=== PATIENT | female | born 1945 | race Caucasian/White ===

== ENCOUNTER 2016-04-22 09:59 | Outpatient (CLI) | payer MEDICARE, OTHER | END 2016-04-22 10:00 | disposition home or self-care (01) | DX: S92.352A Displaced fracture of fifth metatarsal bone, left foot, initial encounter for closed fracture (principal) ==

== ENCOUNTER 2016-05-20 10:57 | Outpatient (CLI) | payer MEDICARE, OTHER | END 2016-05-20 10:58 | disposition home or self-care (01) | DX: S92.355D Nondisplaced fracture of fifth metatarsal bone, left foot, subsequent encounter for fracture with routine healing (principal) ==

== ENCOUNTER 2016-06-23 16:48 | Outpatient (CLI) | payer MEDICARE, OTHER | END 2016-06-23 16:49 | disposition home or self-care (01) | DX: S92.352D Displaced fracture of fifth metatarsal bone, left foot, subsequent encounter for fracture with routine healing (principal) ==

== ENCOUNTER 2016-07-24 10:23 | Outpatient (CLI) | payer MEDICARE, OTHER ==
--- NOTE | 2016-07-24 12:41 | XRAY Report ---
THREE-VIEW LEFT FOOT: 07/24/2016 CLINICAL INDICATION: Followup distal 5th metatarsal fracture. FINDINGS: AP, lateral, oblique views of the left foot demonstrate interval callus formation at the d istal 5th metatarsal fracture site. Osteoarthritic changes are stable, with hallux valgus. No new f racture is appreciated. IMPRESSION: CONTINUED HEALING OF THE DISTAL 5TH METATARSAL FRACTURE. STABLE OSTEOARTHRITIS AND ARORA UX VALGUS. JOB #: [id number] EXT JOB #:[id number]
== END 2016-07-24 10:24 | disposition home or self-care (01) ==
LOC: DI 10:23
PROVIDERS: ATTEND Podiatrist
DX: S92.352D Displaced fracture of fifth metatarsal bone, left foot, subsequent encounter for fracture with routine healing (principal); M19.072 Primary osteoarthritis, left ankle and foot; M20.12 Hallux valgus (acquired), left foot

== ENCOUNTER 2018-01-07 16:47 | Outpatient (CLI) | payer MEDICARE, OTHER | END 2018-01-07 16:48 | disposition home or self-care (01) | LOC: RT.S 16:47 | PROVIDERS: ATTEND Nurse Practitioner Family | DX: R07.89 Other chest pain (principal); Z86.79 Personal history of other diseases of the circulatory system | CPT/HCPCS: 93005 ==

== ENCOUNTER 2018-04-11 11:51 | Outpatient (CLI) | payer MEDICARE, OTHER ==
--- NOTE | 2018-04-12 10:33 | XRAY Report ---
Reason: COUGH Procedure Date: 04/11/2018 Accession Number: [id number] / [id number] Procedure: XR - Chest 2 View X-Ray CPT Code: 38334 FULL RESULT: EXAM: CHEST RADIOGRAPHY EXAM DATE: 04/11/2018 03:20 PM. CLINICAL HISTORY: Productive cough, shortness of breath, and fatigue x1 week COMPARISON: 06/22/2011 4:48 PM. TECHNIQUE: 2 views. FINDINGS: Lungs/Pleura: Normal volumes. No focal consolidation or evidence of edema. No pleural effusion or pneumothorax. Mediastinum: Normal cardiomediastinal contour. Other: Mild degenerative changes in the mid/lower thoracic spine. IMPRESSION: No acute cardiopulmonary abnormality. RADIA
== END 2018-04-11 11:52 | disposition home or self-care (01) ==
LOC: DI 11:51
PROVIDERS: ATTEND Nurse Practitioner Family
DX: R05 Cough (principal)
CPT/HCPCS: 71046

== ENCOUNTER 2019-03-25 12:25 | Outpatient (CLI) | payer MEDICARE, OTHER ==
--- NOTE | 2019-03-25 20:22 | XRAY Report ---
Reason: CHEST PAIN Procedure Date: 03/25/2019 Accession Number: [id number] / [id number] Procedure: XR - Chest 2 View X-Ray CPT Code: 84129 Final Report FULL RESULT: EXAM: CHEST RADIOGRAPHY EXAM DATE: 03/25/2019 12:40 PM. CLINICAL HISTORY: CHEST PAIN. COMPARISON: CHEST 2 VIEW 04/11/2018 3:14 PM. TECHNIQUE: 2 views. FINDINGS: Lungs/Pleura: No focal opacities evident. No pleural effusion. No pneumothorax. Normal volumes. Mediastinum: Heart and mediastinal contours are unremarkable. Other: None. IMPRESSION: Normal 2-view chest radiography. RADIA
== END 2019-03-25 12:26 | disposition home or self-care (01) ==
LOC: DI 12:25
PROVIDERS: ATTEND Registered Nurse
DX: R07.9 Chest pain, unspecified (principal)
CPT/HCPCS: 71046

== ENCOUNTER 2019-04-05 15:18 | Outpatient (CLI) | payer MEDICARE, OTHER ==
--- NOTE | 2019-04-06 08:17 | DEXA Report ---
Reason: POSTMENOPAUSAL Procedure Date: 04/05/2019 Accession Number: [id number] / [id number] Procedure: DEX - Dexa Spine and/or Hip CPT Code: Final Report FULL RESULT: EXAM: Dexa Spine and/or Hip DATE: 04/05/2019 3:59 PM CLINICAL HISTORY: POSTMENOPAUSAL TECHNIQUE: Dual energy x-ray absorptiometry (DXA) was performed on a code-laboration System. Regions measured are the AP Spine, femoral neck, and if needed forearm. COMPARISON: None. In accordance with the International Society for Clinical Densitometry (ISCD) guidelines, data from previous exams may be reanalyzed using current recommendations and techniques. This is done to allow a more accurate basis for comparison with the current study. FINDINGS: The data for the lumbar spine is as follows: BMD (g/cm/cm) T-SCORE Z-SCORE REGION L1 0.904 -1.9 -0.3 L2 0.904 -2.5 -0.9 L3 1.044 -1.3 0.3 L4 1.216 0.1 1.7 TOTAL L1-L3 0.955 -1.8 -0.2 NOTE: All evaluable vertebrae are used for classification The data for the hip is as follows: BMD (g/cm/cm) T-SCORE Z-SCORE REGION Neck 0.779 -1.9 -0.2 TOTAL 0.805 -1.6 -0.2 NOTE: The femoral neck or total proximal femur, whichever is lowest, is used for classification. IMPRESSION: THE WHO CLASSIFICATION BASED ON THE INTERNATIONAL REFERENCE STANDARD IS OSTEOPENIA. THE FRACTURE RISK IS INCREASED. RECOMMENDATION: Patients with diagnosis of osteoporosis or osteopenia should have regular bone mineral density assessment. For those eligible for Medicare, routine testing is allowed once every 2 years. Testing frequency can be increased for patients who have rapidly progressing disease or for those who are receiving medical therapy to restore bone mass. COMMENT: World Health Organization (WHO) definitions for osteoporosis and osteopenia: NORMAL BMD: T-score at -1.0 or higher, fracture risk is low OSTEOPENIA BMD: T-score between -1.0 and -2.5, fracture risk is increased. OSTEOPOROSIS BMD: T-score at -2.5 or lower, fracture risk is high. National Osteoporosis Foundation recommends: 1. Obtain adequate dietary calcium (at least 1200 mg per day) and vitamin D (400-800 international units per day). 2. Participate, as appropriate, in regular weightbearing and muscle-strengthening exercise. 3. Avoid tobacco use and reduce alcohol and caffeine intake. 4. For more detailed information see the website at www.NOF.org.
== END 2019-04-05 15:19 | disposition home or self-care (01) ==
LOC: DI 15:18
PROVIDERS: ATTEND Registered Nurse
DX: M85.89 Other specified disorders of bone density and structure, multiple sites (principal); Z78.0 Asymptomatic menopausal state
CPT/HCPCS: 77080

== ENCOUNTER 2019-04-05 15:19 | Outpatient (CLI) | payer MEDICARE, OTHER ==
--- NOTE | 2019-04-05 16:51 | Mammography Report ---
Reason: ROUTINE MAMMO Procedure Date: 04/05/2019 Accession Number: [id number] / [id number] Procedure: ELA - Screening Mammo w/[facility] CPT Code: Final Report FULL RESULT: EXAM: Screening Mammo w/[facility] DATE: 04/05/2019 4:05 PM CLINICAL HISTORY: Screening encounter. History of late childbearing. TECHNIQUE: (B) - Bilateral CC, laterally exaggerated CC, MLO views were obtained. COMPARISON: 10/25/2015 and 03/28/2014. PARENCHYMAL PATTERN: (D) - The breast(s) demonstrate(s) heterogeneously dense fibroglandular parenchyma. FINDINGS: There are no suspicious masses, calcifications, or areas of distortion. IMPRESSION: Negative examination. BI-RADS category 1. RECOMMENDATION: (ANNUAL) - Recommend routine annual screening mammography. BI-RADS CATEGORY: (1) - Negative. STANDARD QUALIFYING STATEMENTS: 1. This examination was not reviewed with the aid of Computer-Aided Detection (CAD). 2. A negative or benign imaging report should not preclude biopsy if clinically suspicious findings are present. 3. Dense breasts may obscure an underlying neoplasm. 4. This examination was reviewed with the aid of 3D breast imaging (tomosynthesis).
== END 2019-04-05 15:20 | disposition home or self-care (01) ==
LOC: DI 15:19
PROVIDERS: ATTEND Registered Nurse
DX: Z12.31 Encounter for screening mammogram for malignant neoplasm of breast (principal)
CPT/HCPCS: 77063; 77067

== ENCOUNTER 2020-04-30 08:48 | Outpatient (CLI) | payer MEDICARE, OTHER ==
--- NOTE | 2020-05-01 15:07 | Mammography Report ---
BILATERAL DIGITAL SCREENING MAMMOGRAM 3D/2D WITH EXAGGERATED CC: 04/30/2020 CLINICAL: Routine screening. Comparison is made to exams dated: 04/05/2019 mammogram and 10/25/2015 mammogram - [facility]. The tissue of both breasts is heterogeneously dense. This may lower the sensitivity of nunu mography. No significant masses, calcifications, or other findings are seen in either breast. There has been no significant interval change. IMPRESSION: NEGATIVE There is no mammographic evidence of malignancy. A 1 year screening mammogram is recommended. This exam was interpreted at Station ID: [id number]. NOTE: For mammograms, a report in lay terms will be sent to the patient. Approximately 15% of breast malignancies will not be visualized mammographically. In the management of a palpable breast mass, a negative mammogram must not discourage biopsy of a clinically suspicious lesion. Electronically Signed By: Massimo Hardin M.D. ar/penrad:04/30/2020 13:30:16 ACR BI-RADS Category 1: Negative 3341F PARENCHYMAL PATTERN: (D) - The breast(s) demonstrate(s) heterogeneously dense fibroglandular cristofer thomas. BI-RADS CATEGORY: (1) - 1 RECOMMENDATION: (ANNUAL) - Recommend routine annual screening mammography. [id number] 1 year screening LATERALITY: (B)
== END 2020-04-30 08:49 | disposition home or self-care (01) ==
LOC: DI.S 08:48
DX: Z12.31 Encounter for screening mammogram for malignant neoplasm of breast (principal)

== ENCOUNTER 2020-10-04 22:29 | Emergency (ER) | payer MEDICARE, OTHER ==
[2020-10-04] MEDS ORDERED: KETOROLAC 30 MG/ML VIAL IM STA (23:14)
[2020-10-04] MEDS ORDERED: cloNIDine 0.1 MG TABLET PO STA (23:15)
--- NOTE | 2020-10-04 23:17 | ED Physician Documentation ---
History of Present Illness - Stated complaint Stated Complaint: HIGH BP - Chief complaint Chief Complaint: Cardiac - History obtained from History obtained from: Patient, Family () - Additonal information Additional information: 74-year-old woman with history of intermittent A. fib on propafenone, not on AC, also with trigeminal neuralgia and recurrent sinus tract infection, HTN, p/w elevated BP at home and stress related to this. She also endorses intermittent "fuzziness", mild dizziness, bitemporal COVARRUBIAS. denies CP, SOA, n/v, FND. Review of Systems Ten Systems: 10 systems reviewed and negative Constitutional: denies: Fever, Chills, Myalgias Cardiac: denies: Chest pain / pressure Respiratory: denies: Dyspnea Neurologic: reports: Headache, Other (dizziness and fuzziness) PD PAST MEDICAL HISTORY - Past Medical History Past Medical History: Yes Cardiovascular: Hypertension, Atrial fibrillation Respiratory: None Neuro: None Endocrine/Autoimmune: None GI: Ulcers DIPLOMATIC OFFICER: None : None HEENT: Other Derm: None Other Past Medical History: TMJ, Trigeminal neuralgia - Past Surgical History Past Surgical History: Yes HEENT: Other - Present Medications Home Medications: Ambulatory Orders Medication Instructions Recorded Confirmed Gabapentin [Neurontin] 800 mg PO DAILY 10/04/20 10/04/20 Losartan [Cozaar] 25 mg PO DAILY 10/04/20 10/04/20 - Allergies Allergies/Adverse Reactions: Allergies Allergy/AdvReac Type Severity Reaction Status Date / Time No Known Drug Allergies Allergy Verified 10/04/20 22:51 - Social History Does the pt smoke?: No Smoking Status: Never smoker PD ED PE NORMAL - Vitals Vital signs reviewed: Yes - General General: Alert and oriented X 3, No acute distress, Well developed/nourished - HEENT HEENT: Atraumatic, PERRL, EOMI - Neck Neck: Supple, no meningeal sign - Cardiac Cardiac: RRR - Respiratory Respiratory: No respiratory distress, Clear bilaterally - Abdomen Abdomen: Non tender, Non distended - Derm Derm: Normal color - Extremities Extremities: No deformity - Neuro Neuro: Alert and oriented X 3, type bar and segment assembler 2-12 intact, No motor deficit, No sensory deficit, Normal speech, Other (normal cerebellar testing) - Psych Psych: Other (mood is "stressed". anxious affect) Results - Vitals Vitals: Vital Signs - 24 hr 10/04/20 10/04/20 10/04/20 22:30 22:48 23:58 Temperature 36.6 C Heart Rate 53 L 59 L 54 L Respiratory 18 16 Rate Blood Pressure 216/76 H 231/89 H 169/71 H O2 Saturation 99 100 10/05/20 00:27 Temperature 36.6 C Heart Rate 50 L Respiratory 18 Rate Blood Pressure 180/70 H O2 Saturation 97 Oxygen O2 Source Room air - EKG (time done) 2320 Rate: Rate (enter#) (50) Rhythm: Sinus bradycardia Sherman: Normal Intervals: Normal VA QRS: Normal Ischemia: Normal ST segments Compare to prior EKG: Unchanged from prior EKG Computer interpretation: Agree with computer - Labs Labs: Laboratory Tests 10/04/20 10/04/20 10/04/20 23:10 23:10 23:10 WBC 4.4 L RBC 3.97 L Hgb 12.5 Hct 37.7 MCV 95.0 MCH 31.5 H MCHC 33.2 RDW 11.5 L Plt Count 325 MPV 9.3 Neut # (Auto) 2.1 Lymph # (Auto) 1.5 Marshall # (Auto) 0.5 Eos # (Auto) 0.2 Baso # (Auto) 0.0 Absolute Nucleated RBC 0.00 Nucleated RBC % 0.0 Sodium 137 Potassium 3.7 Chloride 102 Carbon Dioxide 28 Anion Gap 7.0 BUN 22 H Creatinine 0.6 Estimated GFR (MDRD) 98 Glucose 104 H Calcium 9.3 Total Bilirubin 0.7 AST 21 ALT 21 Alkaline Phosphatase 78 Troponin I High Sens 3.7 Total Protein 7.0 Albumin 3.9 Globulin 3.1 Albumin/Globulin Ratio 1.3 Lipase 36 PD MEDICAL DECISION MAKING - ED course ED course: 74yF presents with significantly elevated BP, improved with colonidine in the emergency department. She just increased her losartan therefore I advised her to f/u with the pmd prior to adjusting meds further. strict return precautions discussed. Departure - Departure Disposition: 01 Home, Self Care Clinical Impression: Hypertension, Headache Condition: Good Instructions: Hypertension Control, ED Headache Tension Comments: You were seen in the emergency department for headache, high blood pressure and dizziness. your bloodwork including troponin (a heart blood test), ekg, and physical exam were normal. Your blood pressure was elevated when you first a rrived and improved with clonidine, a blood pressure medication we gave. You should call and make an appointment with your primary doctor tomorrow morning to discuss your high blood pressure readings. You may need to increase the dose of your losartan again. Please return to the emergency department if you have severe headache, difficulty speaking, weakness on one side of the body, confusion, chest pain, shortness of breath, or any other concerns.
[2020-10-04 23:21] LABS: BASOPHILS % (AUTO) 0.9 %; EOSINOPHILS # (AUTO) 0.2 10^3/uL (0.0-0.7); EOSINOPHILS % (AUTO) 5.5 %; HCT - HEMATOCRIT 37.7 % (37.0-47.0); HGB - HEMOGLOBIN 12.5 g/dL (12.0-16.0); LYMPHOCYTES # (AUTO) 1.5 10^3/uL (1.5-3.5); LYMPHOCYTES % (AUTO) 33.9 %; MEAN CORPUSCULAR HEMOGLOBIN 31.5 pg (27.0-31.0); MEAN CORPUSCULAR HGB CONC 33.2 g/dL (32.0-36.0); MEAN PLATELET VOLUME 9.3 fL (7.9-10.8); MONOCYTES # (AUTO) 0.5 10^3/uL (0.0-1.0); MONOCYTES % (AUTO) 11.4 %; NEUTROPHILS # (AUTO) 2.1 10^3/uL (1.5-6.6); NEUTROPHILS % (AUTO) 48.1 %; PLT - PLATELET COUNT 325 10^3/uL (130-450); RED BLOOD COUNT 3.97 10^6/uL (4.20-5.40); RED CELL DISTRIBUTION WIDTH 11.5 % (12.0-15.0); WHITE BLOOD COUNT 4.4 x10^3/uL (4.8-10.8)
[2020-10-04 23:31] LABS: ALBUMIN 3.9 g/dL (3.2-5.5); ALBUMIN/GLOBULIN RATIO 1.3 (1.0-2.2); BILIRUBIN,TOTAL 0.7 mg/dL (0.2-1.0); CALCIUM 9.3 mg/dL (8.5-10.3); CREATININE 0.6 mg/dL (0.4-1.0); POTASSIUM 3.7 mmol/L (3.5-5.0)
[2020-10-05 00:29] VITALS: BP 180/70
== END 2020-10-05 00:38 | disposition home or self-care (01) ==
LOC: ED 22:29
DX: I10 Essential (primary) hypertension (principal); R51.9 Headache, unspecified; I48.91 Unspecified atrial fibrillation; G50.0 Trigeminal neuralgia
CPT/HCPCS: 36415; 80053; 83690; 84484; 85025; 93005; 96372; 99284; A9270

== ENCOUNTER 2021-04-01 11:42 | Outpatient (CLI) | payer MEDICARE, OTHER ==
--- NOTE | 2021-04-02 12:19 | XRAY Report ---
PROCEDURE: Foot 2 View BILAT INDICATIONS: BUNION, LEFT AND RIGHT FOOT TECHNIQUE: 4 views of the foot were acquired. COMPARISON: Left radiograph dated 07/24/2016 FINDINGS: Bones: Moderate bilateral hallux valgus is seen slightly worse on the left side with left worst and right bilateral first MTP joint osteoarthritis. Mild to moderate first through fifth interphalangeal joint osteoarthritic changes also seen. Suggestion of old healed injury involving fifth proximal phal angeal shaft. No acute fracture or dislocation. No gross bony erosive changes. No fractures or disloc ations. No suspicious bony lesions. Soft tissues: Mild soft tissue bunion over medial aspect of bilateral first metatarsal heads are see n. No tibiotalar joint effusion. Achilles tendon appears normal. IMPRESSION: Moderate bilateral hallux valgus with overlying soft tissue bunion. No acute fracture or dislocation. Forefoot joint osteoarthritis as above. Reviewed by: Bill Simmons MD on 04/02/2021 12:17 PM PST Approved by: Bill Simmons MD on 04/02/2021 12:17 PM PST Station ID: [id number]
== END 2021-04-01 11:43 | disposition home or self-care (01) ==
LOC: DI.S 11:42
PROVIDERS: ATTEND Registered Nurse
DX: M21.612 Bunion of left foot (principal); M21.611 Bunion of right foot; M20.12 Hallux valgus (acquired), left foot; M20.11 Hallux valgus (acquired), right foot; M19.072 Primary osteoarthritis, left ankle and foot; M19.071 Primary osteoarthritis, right ankle and foot

== ENCOUNTER 2022-05-25 08:53 | Outpatient (CLI) | payer MEDICARE, OTHER ==
--- NOTE | 2022-05-26 09:02 | Mammography Report ---
BILATERAL DIGITAL SCREENING MAMMOGRAM 3D/2D WITH EXAGGERATED CC: 05/25/2022 CLINICAL: Routine screening. Comparison is made to exams dated: 04/05/2019 mammogram and 10/25/2015 mammogram - [facility]. Both breasts are heterogeneously dense, which may obscure small masses (category c / 51-75% glandular tissue). No significant masses, calcifications, or other findings are seen in either breast. There has been no significant interval change. IMPRESSION: NEGATIVE There is no mammographic evidence of malignancy. A 1 year screening mammogram is recommended. Based on the Tyrer Cuzick model (a risk assessment model) the patients lifetime risk is 6.0% and her 10 year risk is 5.4%. According to the ACR, ACS, and NCCN guidelines, an annual breast MRI exam josh g with mammogram is recommended if the patients lifetime risk is 20% or greater. This exam was interpreted at Station ID: [id number]. NOTE: For mammograms, a report in lay terms will be sent to the patient. Approximately 15% of breast malignancies will not be visualized mammographically. In the management of a palpable breast mass, a negative mammogram must not discourage biopsy of a clinically suspicious lesion. Electronically Signed By: Florecita rose/lucila:05/25/2022 13:25:20 letter sent: No_Letter ACR BI-RADS Category 1: Negative 3341F PARENCHYMAL PATTERN: (D) - The breast(s) demonstrate(s) heterogeneously dense fibroglandular cristofer thomas. BI-RADS CATEGORY: (1) - 1 Mammogram [id number] 1 year screening LATERALITY: (B)
== END 2022-05-25 08:54 | disposition home or self-care (01) ==
LOC: DI.S 08:53
DX: Z12.31 Encounter for screening mammogram for malignant neoplasm of breast (principal)

== ENCOUNTER 2023-05-13 15:12 | Outpatient (CLI) | payer MEDICARE, OTHER ==
--- NOTE | 2023-05-13 16:19 | DEXA Report ---
PROCEDURE: Dexa Spine and/or Hip INDICATIONS: POST MENOPAUSAL TECHNIQUE: Dual energy x-ray absorptiometry (DXA) was performed on a Stem[employer] System. Regions measur ed are the AP Spine, femoral neck, and if needed forearm. COMPARISON: DEXA, 04/05/2019. FINDINGS: Lumbar Spine: Bone Mineral Density: 1.022 g/cm/cm,T score: -1.3. No significant change. Left Femoral Neck: Bone Mineral Density: 0.705 g/cm/cm, T score: -2.4. Left Hip: Bone Mineral Density: 0.773 g/cm/cm,T score: -1.9. No significant change. (T score greater or equal to -1.0: NORMAL) (T score from -1.1 to -2.4: OSTEOPENIA) (T score less than or equal to -2.5 to: OSTEOPOROSIS) Impression: By WHO criteria, this patient has osteopenia. Compared to last exam, there is no statistically signif icant change. Patients with diagnosis of osteoporosis or osteopenia should have regular bone mineral density assess ment. For those eligible for Medicare, routine testing is allowed once every 2 years. Testing frequ ency can be increased for patients who have rapidly progressing disease or for those who are receivin g medical therapy to restore bone mass. Reviewed by: Aman Montiel MD on 05/13/2023 4:18 PM PDT Approved by: Aman Montiel MD on 05/13/2023 4:18 PM PDT Station ID: [id number]
== END 2023-05-13 15:13 | disposition home or self-care (01) ==
LOC: DI 15:12
PROVIDERS: ATTEND Registered Nurse
DX: M85.89 Other specified disorders of bone density and structure, multiple sites (principal); Z78.0 Asymptomatic menopausal state

== ENCOUNTER 2023-08-26 10:06 | Outpatient (CLI) | payer MEDICARE, OTHER ==
--- NOTE | 2023-08-26 20:46 | XRAY Report ---
PROCEDURE: Knee 2V LT INDICATIONS: XRAY LEFT KNEE TECHNIQUE: 2 views of the knee(s) were acquired. COMPARISON: None. FINDINGS: Bones: No fractures or dislocations. No suspicious bony lesions. There is moderate to severe tricompartmental arthritic changes within the left knee. Periarticular os teophytes are present. No chondrocalcinosis or discrete erosions. Partially visualized appearance of the medial right compartment of the knee demonstrates moderate narrowing. Soft tissues: Mild knee joint effusion. No suspicious soft tissue calcifications or masses. IMPRESSION: Moderate to severe tricompartmental left arthritic changes as above. Reviewed by: Darshana Tinoco MD on 08/26/2023 8:45 PM PDT Approved by: Darshana Tinoco MD on 08/26/2023 8:45 PM PDT Station ID: [id number]
== END 2023-08-26 10:07 | disposition home or self-care (01) ==
LOC: DI.S 10:06
PROVIDERS: ATTEND Internal Medicine
DX: M17.12 Unilateral primary osteoarthritis, left knee (principal)

== ENCOUNTER 2023-09-13 10:05 | Outpatient (CLI) | payer MEDICARE, OTHER ==
--- NOTE | 2023-09-14 10:16 | Mammography Report ---
BILATERAL DIGITAL SCREENING MAMMOGRAM 3D/2D: 09/13/2023 CLINICAL: Routine screening. Comparison is made to exams dated: 05/25/2022 mammogram, 04/30/2020 mammogram, 10/25/2015 mammogram, and 04/05/2019 mammogram - [facility]. Both breasts are heterogeneously dense, which may obscure small masses (category c / 51-75% glandular tissue). No significant masses, calcifications, or other findings are seen in either breast. There has been no significant interval change. IMPRESSION: NEGATIVE There is no mammographic evidence of malignancy. A 1 year screening mammogram is recommended. Based on the Tyrer Cuzick model (a risk assessment model) the patient's lifetime risk is 5.6% and her 10 year risk is 5.6%. According to the ACR, ACS, and NCCN guidelines, an annual breast MRI exam josh g with mammogram is recommended if the patient's lifetime risk is 20% or greater. This exam was interpreted at Station ID: [id number]. NOTE: For mammograms, a report in lay terms will be sent to the patient. Approximately 15% of breast malignancies will not be visualized mammographically. In the management of a palpable breast mass, a negative mammogram must not discourage biopsy of a clinically suspicious lesion. Electronically Signed By: Cory alu/lucila:09/13/2023 11:04:16 letter sent: No_Letter ACR BI-RADS Category 1: Negative 3341F PARENCHYMAL PATTERN: (D) - The breast(s) demonstrate(s) heterogeneously dense fibroglandular cristofer thomas. BI-RADS CATEGORY: (1) - 1 RECOMMENDATION: (ANNUAL) - Recommend routine annual screening mammography. [id number] 1 year screening LATERALITY: (B)
== END 2023-09-13 10:06 | disposition home or self-care (01) ==
LOC: DI.S 10:05
DX: Z12.31 Encounter for screening mammogram for malignant neoplasm of breast (principal); R92.333 Mammographic heterogeneous density, bilateral breasts